=== PATIENT | female | born 1995 | race American Indian/Alaskan Native ===

== ENCOUNTER 2018-02-26 23:27 | Outpatient (CLI) | payer MEDICAID ==
[2018-02-27 00:05] VITALS: BP 138/84
== END 2018-02-27 00:57 | disposition home or self-care (01) ==
LOC: TRG 23:27
PROVIDERS: ATTEND Obstetrics & Gynecology
DX: O47.03 False labor before 37 completed weeks of gestation, third trimester (principal); Z3A.30 30 weeks gestation of pregnancy; Z91.040 Latex allergy status; Z88.0 Allergy status to penicillin; Z87.891 Personal history of nicotine dependence
CPT/HCPCS: 59025